=== PATIENT | female | born 1995 | race Asian ===

== ENCOUNTER 2023-03-02 10:08 | Day surgery (SDC) | payer BC ==
[2023-03-01 16:25] VITALS: BMI 22.6
[2023-03-01 16:54] LABS: Hematocrit 34.5 % (34.9-44.5); Hemoglobin 11.1 g/dL (12.0-15.5); Mean Corpuscular HGB CONC 32.2 g/dL (32.0-36.0); Mean Corpuscular Hemoglobin 25.6 pg (27.0-33.0); Mean Corpuscular Volume 79.7 fl (81.6-98.3); Platelet Count 376 10x3/uL (150-450); RBC Distribution Width 13.2 % (11.5-14.5); Red Blood Cell (RBC) Count 4.33 10x6/uL (3.90-5.03)
[2023-03-01 17:07] LABS: BHCG - Serum Negative (NEGATIVE); Pregs Control Background? CLEAR/WHITE (CLR/WHITE); Pregs Control Bar Appear? YES (CONTROL BAR)
[2023-03-02] MEDS ORDERED: Gabapentin 300 MG CAP ONE (10:22)
[2023-03-02] MEDS ORDERED: PROPOFOL 20 ML ONE (10:45)
[2023-03-02] MEDS ORDERED: Scopolamine 1.5 mg/72 hour Patch ONE (10:50)
[2023-03-02] MEDS ORDERED: Ketorolac Tromethamine 30 MG/ML VIAL ONE (12:06)
[2023-03-02] MEDS ORDERED: Lidocaine 1% PF 5 ML VIAL ONE (12:06)
[2023-03-02] MEDS ORDERED: Dexamethasone 4 mg/ml Vial ONE (12:06)
[2023-03-02] MEDS ORDERED: Ondansetron PF 4 MG/2 ML Vial ONE (12:06)
[2023-03-02] MEDS ORDERED: fentaNYL 50 mcg/mL 1 mL Vial ONE (12:07)
[2023-03-02] MEDS ORDERED: Midazolam HCl 2 mg/2 ml Vial ONE (12:07)
[2023-03-02] MEDS ORDERED: ePHEDrine Sulfate 50 MG/10 ML VIAL ONE (12:16)
[2023-03-02] MEDS ORDERED: Lidocaine 1% (PF) 30 ML VIAL ONE (12:23)
[2023-03-02] MEDS ORDERED: Meperidine HCl/PF 25 MG/ML VIAL ONE (12:38)
== END 2023-03-02 15:00 | disposition home or self-care (01) ==
LOC: CSHSDC 10:08
PROVIDERS: ATTEND Obstetrics & Gynecology
PROC: 0UBK0ZZ Excision of Hymen, Open Approach (ICD-10-PCS; principal; 2023-03-02)
DX: N89.6 Tight hymenal ring (principal)
CPT/HCPCS: 36415; 84703; 85027; 86850; 86900; 86901; J1100; J1885; J2001; J2175; J2250; J2405; J2704; J3010